=== PATIENT | male | born 1970 | race Caucasian/White ===

== ENCOUNTER 2017-09-25 02:59 | Emergency (ER) | payer SELFPAY ==
[~2017-09-25] VITALS: Ht 162.6 cm; Wt 63.5 kg
[2017-09-25 03:04] VITALS: BP 137/89
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
--- NOTE | 2017-09-25 03:38 | NUR ---
Patient noted to have existing wounds upon arrival to ER. Wound cleaned by EMT with NS/Betadine. Open laceration above left eyebrow. Physician informed.
[2017-09-25] MEDS ORDERED: LIDOCAINE 1% 500 MG/50 ML VIAL INJ ONE (03:50)
[2017-09-25] MEDS ORDERED: NEOMYCIN/POLYMYXIN/BACITRACIN 0.9 GM/1 PKT TP ONE (03:50)
[2017-09-25] MEDS ORDERED: LIDOCAINE MPF 1% - **ER/OR** 5 ML ONE (04:41)
--- NOTE | 2017-09-25 05:40 | NUR ---
PT RESTING COMFORTABLY.
--- NOTE | 2017-09-25 07:03 | NUR ---
Patient discharged with v/s stable. Written and verbal after care instructions given and explained. Patient verbalized understanding. Ambulatory with steady gait. All questions addressed prior to discharge. Advised to follow up with PMD.
[2017-09-25 07:04] VITALS: BP 115/76
== END 2017-09-25 07:03 | disposition home or self-care (01) ==
LOC: MED 02:59
DX: S01.81XA Laceration without foreign body of other part of head, initial encounter (principal); Y09 Assault by unspecified means; Y93.89 Activity, other specified; Y92.89 Other specified places as the place of occurrence of the external cause; Y99.8 Other external cause status
CPT/HCPCS: 90471; 90715; 99283; J2001

== ENCOUNTER 2017-10-01 13:26 | Emergency (ER) | payer SELFPAY ==
[~2017-10-01] VITALS: Ht 152.4 cm; Wt 65.8 kg
[2017-10-01 13:31] VITALS: BP 136/79
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
--- NOTE | 2017-10-01 14:10 | NUR ---
Patient being evaluated by physician at bedside.
[2017-10-01 14:45] VITALS: BP 134/80
== END 2017-10-01 14:45 | disposition home or self-care (01) ==
LOC: MED 13:26
DX: S01.81XD Laceration without foreign body of other part of head, subsequent encounter (principal); X58.XXXD Exposure to other specified factors, subsequent encounter
CPT/HCPCS: 99281

== ENCOUNTER 2021-09-21 02:49 | Emergency (ER) | payer SELFPAY ==
[~2021-09-21] VITALS: Ht 158.2 cm; Wt 69.9 kg
[2021-09-21 02:55] VITALS: BP 119/78
--- NOTE | 2021-09-21 03:00 | NUR ---
PT TO BED 12.
--- NOTE | 2021-09-21 03:17 | NUR ---
PT TAKEN TO CT VIA [facility]
--- NOTE | 2021-09-21 03:32 | NUR ---
PT BACK FROM CT.
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
[2021-09-21 03:34] VITALS: BP 119/78
[2021-09-21] MEDS: HYDROcodone/APAP 5/325 MG 1 TAB TAB PO ONE (03:59)
[2021-09-21] MEDS ORDERED: NAPR-54 PO (04:34)
[2021-09-21] MEDS ORDERED: CYCL-711 PO (04:34)
[2021-09-21] MEDS: KETOROLAC 30 MG/ML VIAL IM ONE (04:41)
== END 2021-09-21 04:45 | disposition home or self-care (01) ==
LOC: MED 02:49
DX: S16.1XXA Strain of muscle, fascia and tendon at neck level, initial encounter (principal); Z88.0 Allergy status to penicillin; Z79.899 Other long term (current) drug therapy; W17.89XA Other fall from one level to another, initial encounter; Y93.89 Activity, other specified; Y92.89 Other specified places as the place of occurrence of the external cause; Y99.8 Other external cause status
CPT/HCPCS: 70450; 72125; 96372; 99284; J1885